=== PATIENT | female | born 1960 | race Caucasian/White ===

== ENCOUNTER 2020-04-20 02:47 | Inpatient (IN) | payer OTHER ==
[2020-04-20 02:52] LABS: Glucose,Whole Blood 120 mg/dL (75-99)
[2020-04-20] MEDS ORDERED: LORazepam 2 MG/ML INJ IV STA (03:17)
[2020-04-20] MEDS ORDERED: SODIUM CHLORIDE 0.9% 500 ML 500 ML IV STA (03:18)
--- NOTE | 2020-04-20 03:28 | ED ---
Altered Mental Status HPI - General Chief Complaint: Altered Mental Status Stated Complaint: mental health Time Seen by Provider: 04/20/20 03:03 Source: EMS Mode of arrival: EMS Limitations: altered mental status - History of Present Illness Initial Comments: This patient is a 59-year-old woman brought by EMS to have evaluation for altered mental status. They were called to the home because the patient was reportedly hallucinating and acting strange fashion. It was reported that the patient had taken Suboxone, which is not her medication. The patient is not able to give any useful history. She does appear to be acutely delirious, hallucinating about bugs in the room. MD Complaint: altered mental status, confusion -: hour(s) Severity: severe Consistency of Symptoms: getting worse - Related Data Allergies Allergy/AdvReac Type Severity Reaction Status Date / Time No Known Allergies Allergy Verified 04/20/20 03:21 Review of Systems ROS Statement: Those systems with pertinent positive or pertinent negative responses have been documented in the HPI. ROS Other: All systems not noted in ROS Statement are negative. Limitations: ROS unobtainable due to patients medical condition (Patient acutely delirious) Past Medical History Past Medical History: Unable to Obtain Past Surgical History: Unable to Obtain Smoking Status: Unknown if ever smoked Past Alcohol Use History: None Reported Past Drug Use History: None Reported General Exam Limitations: altered mental status General appearance: alert, other (Appears delirious) Head exam: Present: atraumatic, normocephalic, normal inspection Eye exam: Present: normal appearance, PERRL, EOMI. Absent: nystagmus ENT exam: Present: normal oropharynx Neck exam: Present: normal inspection, full ROM. Absent: tenderness, meningismus Respiratory exam: Present: normal lung sounds bilaterally. Absent: respiratory distress, wheezes, rales, rhonchi, stridor Cardiovascular Exam: Present: regular rate, normal rhythm, normal heart sounds. Absent: systolic murmur, diastolic murmur, rubs, gallop GI/Abdominal exam: Present: soft. Absent: distended, tenderness, guarding, rebound, rigid Extremities exam: Present: normal inspection, normal capillary refill. Absent: pedal edema, calf tenderness Back exam: Present: normal inspection Neurological exam: Present: alert, CN II-XII intact. Absent: oriented X3 (Patient is only oriented to person at the moment), motor sensory deficit Skin exam: Present: warm, dry, intact, normal color. Absent: rash Course Vital Signs 04/20/20 04/20/20 02:50 06:23 Temperature 97.8 F 98.3 F Pulse Rate 101 H 99 Respiratory 18 16 Rate Blood Pressure 158/135 146/79 O2 Sat by Pulse 96 100 Oximetry Procedures - Restraint - Face to Face Restraint Occurrence 1 Patient's Immediate Situation: Endangers self safety Patient's Reaction to the Intervention: Bizarre, Apprehensive, Resistive to care Patient's Medical & Behavioral Condition: Confused, Agitated, Visual hallucinations, Bizarre behavior Need to Continue or Terminate Restraint or Seclusion: Continue Face to Face Eval of Restraint Date: 04/20/20 Face to Face Eval of Restraint Time: 03:50 Medical Decision Making - Medical Decision Making Patient is a 59-year-old woman brought for acute delirium. After she has been here. Time her exam is clearing. The patient is able to recall that she did take part of the Suboxone film. She states that she had been having some pain to her right leg which let her to take the medication. She now is able to relate that she does see Dr. Estefania Cordova who is out of [place]. She is able to recall medications she is taking. The patient denies any chest discomfort tonight though she states she has had episodes in the past. No dyspnea, diaphoresis, nausea or vomiting. Given that the troponin is above normal, will admit for cardiology consultation. - Lab Data Result diagrams: 04/20/20 04:19 04/20/20 04:19 Lab Results 04/20/20 04/20/20 04/20/20 Range/Units 02:51 04:19 04:19 WBC 15.7 H (3.8-10.6) k/uL RBC 4.88 (3.80-5.40) m/uL Hgb 14.9 (11.4-16.0) gm/dL Hct 46.5 H (34.0-46.0) % MCV 95.3 (80.0-100.0) fL MCH 30.5 (25.0-35.0) pg MCHC 32.0 (31.0-37.0) g/dL RDW 13.0 (11.5-15.5) % Plt Count 307 (150-450) k/uL Neutrophils % 78 % Lymphocytes % 14 % Monocytes % 4 % Eosinophils % 2 % Basophils % 0 % Neutrophils # 12.2 H (1.3-7.7) k/uL Lymphocytes # 2.3 (1.0-4.8) k/uL Monocytes # 0.6 (0-1.0) k/uL Eosinophils # 0.4 (0-0.7) k/uL Basophils # 0.1 (0-0.2) k/uL Sodium 137 (137-145) mmol/L Potassium 4.7 (3.5-5.1) mmol/L Chloride 104 (98-107) mmol/L Carbon Dioxide 27 (22-30) mmol/L Anion Gap 6 mmol/L BUN 15 (7-17) mg/dL Creatinine 0.86 (0.52-1.04) mg/dL Est GFR (CKD-EPI)AfAm 86 (>60 ml/min/1.73 sqM) Est GFR (CKD-EPI)NonAf 75 (>60 ml/min/1.73 sqM) Glucose 154 H (74-99) mg/dL POC Glucose (mg/dL) 120 H (75-99) mg/dL POC Glu Monomer Purification Operator ID Nolan, Donell Calcium 9.4 (8.4-10.2) mg/dL Total Bilirubin 0.6 (0.2-1.3) mg/dL AST 25 (14-36) U/L ALT 13 (4-34) U/L Alkaline Phosphatase 59 (38-126) U/L Troponin I (0.000-0.034) ng/mL Total Protein 6.9 (6.3-8.2) g/dL Albumin 4.2 (3.5-5.0) g/dL TSH 1.990 (0.465-4.680) mIU/L 04/20/20 Range/Units 04:19 WBC (3.8-10.6) k/uL RBC (3.80-5.40) m/uL Hgb (11.4-16.0) gm/dL Hct (34.0-46.0) % MCV (80.0-100.0) fL MCH (25.0-35.0) pg MCHC (31.0-37.0) g/dL RDW (11.5-15.5) % Plt Count (150-450) k/uL Neutrophils % % Lymphocytes % % Monocytes % % Eosinophils % % Basophils % % Neutrophils # (1.3-7.7) k/uL Lymphocytes # (1.0-4.8) k/uL Monocytes # (0-1.0) k/uL Eosinophils # (0-0.7) k/uL Basophils # (0-0.2) k/uL Sodium (137-145) mmol/L Potassium (3.5-5.1) mmol/L Chloride (98-107) mmol/L Carbon Dioxide (22-30) mmol/L Anion Gap mmol/L BUN (7-17) mg/dL Creatinine (0.52-1.04) mg/dL Est GFR (CKD-EPI)AfAm (>60 ml/min/1.73 sqM) Est GFR (CKD-EPI)NonAf (>60 ml/min/1.73 sqM) Glucose (74-99) mg/dL POC Glucose (mg/dL) (75-99) mg/dL POC Glu Monomer Purification Operator ID Calcium (8.4-10.2) mg/dL Total Bilirubin (0.2-1.3) mg/dL AST (14-36) U/L ALT (4-34) U/L Alkaline Phosphatase (38-126) U/L Troponin I 0.144 H* (0.000-0.034) ng/mL Total Protein (6.3-8.2) g/dL Albumin (3.5-5.0) g/dL TSH (0.465-4.680) mIU/L - EKG Data -: EKG Interpreted by Dc EKG shows normal: sinus rhythm, intervals (Normal), QRS complexes (Possible old septal infarct), ST-T waves (Normal) Rate: normal (Rate 100 bpm) Disposition Clinical Impression: Elevated troponin I level, Altered mental status Disposition: ADMITTED IP TO THIS HOSP Condition: Fair Is patient prescribed a controlled substance at d/c from ED?: No
[2020-04-20 04:26] LABS: Basophils # (A) 0.1 k/uL (0-0.2); Basophils % (A) 0 %; Eosinophils # (A) 0.4 k/uL (0-0.7); Eosinophils % (A) 2 %; HCT 46.5 % (34.0-46.0); HGB 14.9 gm/dL (11.4-16.0); Lymphocytes # (A) 2.3 k/uL (1.0-4.8); Lymphocytes % (A) 14 %; MCH 30.5 pg (25.0-35.0); MCV 95.3 fL (80.0-100.0); Mean Platelet Volume 7.6; Monocytes # (A) 0.6 k/uL (0-1.0); Monocytes % (A) 4 %; Neutrophils # (A) 12.2 k/uL (1.3-7.7); Neutrophils % (A) 78 %; Platelet Count 307 k/uL (150-450); RBC 4.88 m/uL (3.80-5.40); WBC 15.7 k/uL (3.8-10.6)
[2020-04-20 04:39] LABS: Albumin 4.2 g/dL (3.5-5.0); Calcium 9.4 mg/dL (8.4-10.2); Potassium 4.7 mmol/L (3.5-5.1); Total Bilirubin 0.6 mg/dL (0.2-1.3); Total Protein 6.9 g/dL (6.3-8.2)
[2020-04-20] MEDS ORDERED: METOPROLOL TARTRATE 25 MG TAB PO STA (05:15)
[2020-04-20] MEDS ORDERED: ASPIRIN 81 MG PO STA (05:16)
--- NOTE | 2020-04-20 05:42 | CT ---
EXAM: CT Head Without Intravenous Contrast CLINICAL HISTORY: altered mental status TECHNIQUE: Axial computed tomography images of the head/brain without intravenous contrast. CTDI is 49.27 mGy and DLP is 1154.4 mGy-cm. This CT exam was performed using one or more of the following dose reduction techniques: automated exposure control, adjustment of the mA and/or kV according to patient size, and/or use of iterative reconstruction technique. COMPARISON: No relevant prior studies available. FINDINGS: Brain: Unremarkable. No hemorrhage. No significant white matter disease. No edema. Ventricles: Unremarkable. No ventriculomegaly. Bones/joints: Unremarkable. No acute fracture. Soft tissues: Unremarkable. Sinuses: Unremarkable as visualized. No acute sinusitis. Mastoid air cells: Unremarkable as visualized. No mastoid effusion. IMPRESSION: No CT evidence of acute intracranial pathology.
[2020-04-20] MEDS ORDERED: NITROGLYCERIN SL TABS 0.4 MG TAB SUBLINGUAL PRN (05:52)
[2020-04-20 07:19] LABS: Amphetamine Screen,Urine Not Detected (NotDetected); Barbiturate Screen,Urine Not Detected (NotDetected); Benzodiazepines Screen,Urine Detected (NotDetected); Cocaine Screen,Urine Not Detected (NotDetected); Methadone Screen, Urine Not Detected (NotDetected); Opiate Screen,Urine Not Detected (NotDetected); Oxycodone Screen, Urine Not Detected (NotDetected); Phencyclidine Screen,Urine Not Detected (NotDetected); Tricyclic Antidepressant,Urine Not Detected (NotDetected); Urn Cannabinoid Scrn Detected (NotDetected)
[2020-04-20] MEDS ORDERED: ALPRAZolam 0.5 MG TAB PO PRN (09:27)
[2020-04-20] MEDS ORDERED: LORazepam 2 MG/ML INJ IV PRN (09:27)
[2020-04-20] MEDS ORDERED: HALOPERIDOL LACTATE 5 MG/ML 1 ML VIAL IVP PRN (09:28)
[2020-04-20] MEDS ORDERED: GABAPENTIN 400 MG CAP PO SCH (10:30)
[2020-04-20] MEDS ORDERED: PROPRANOLOL LA 60 MG CAP.SA.24H PO SCH (10:30)
[2020-04-20] MEDS: diazePAM 5 MG TAB PO PRN ×2 (10:43→21:15)
[2020-04-20] MEDS: ATORVASTATIN 40 MG TAB PO SCH (10:43)
[2020-04-20] MEDS: NICOTINE 14MG/24HR PATCH TRANSDERM SCH (10:43)
[2020-04-20] MEDS: SODIUM CHLORIDE 0.9% 1,000 ML IV SCH ×2 (10:47→16:05)
--- NOTE | 2020-04-20 11:01 | P.HPIM ---
History of Present Illness This is a pleasant 59 years old female with past medical history of hypertension and hyperlipidemia. She was brought yesterday altered mental status. As per first attempt him over the phone and then at bedside that patient first hurt her leg with mild scraping after that she started talking nonsense and noncoherent warts, patient admitted taking Suboxone medicine prior to that which is mild blunting to her on the top of her gabapentin and Ultram. This morning patient was agitated and wanted to leave AMA, I wanted to talk to her she was a little bit distracted although she was alert and awake and oriented to time and place and person, however she The hospital but she thought she is in her [facility] and she didn't know the CT but after reorientation she became more aware to the place. However she noticed to have some flight of thoughts and agitated but within 1 hour she became more calm and more awake and alert. She denies chest pain or dyspnea or coughing. She is a smoker. Labs showing mild leukocytosis with no evidence of infection. Troponin is elevated at 0.14 and 0.49, leukocytosis slightly elevated at 15 K, TSH normal, rest of BMP and liver enzymes were unremarkable. Review of Systems CONSTITUTIONAL: No fever, no malaise, no fatigue. HEENT: No recent visual problems or hearing problems. Denied any sore throat. CARDIOVASCULAR: No orthopnea, PND, no palpitations, no syncope. PULMONARY: No shortness of breath, no cough, no hemoptysis. GASTROINTESTINAL: No diarrhea, no nausea, no vomiting, no abdominal pain. Normoactive bowel sounds. NEUROLOGICAL: No headaches, no weakness, no numbness. HEMATOLOGICAL: Denies any bleeding or petechiae. GENITOURINARY: Denies any burning micturition, frequency, or urgency. MUSCULOSKELETAL/RHEUMATOLOGICAL: Denies any joint pain, swelling, or any muscle pain. ENDOCRINE: Denies any polyuria or polydipsia. Past Medical History Past Medical History: Unable to Obtain Past Surgical History: Unable to Obtain Smoking Status: Unknown if ever smoked Past Alcohol Use History: None Reported Past Drug Use History: None Reported Medications and Allergies Home Medications Medication Instructions Recorded Confirmed Type Diazepam [Valium] 10 mg PO BID PRN 04/20/20 04/20/20 History Gabapentin 1,200 mg PO TID 04/20/20 04/20/20 History Nicotine 14Mg/24Hr Patch [Habitrol 1 patch TRANSDERM DAILY 04/20/20 04/20/20 History 14Mg/24Hr Patch] Pravastatin Sodium [Pravachol] 20 mg PO HS 04/20/20 04/20/20 History Propranolol HCl [Propranolol HCl 60 mg PO DAILY 04/20/20 04/20/20 History ER] buPROPion HCL [Wellbutrin SR] 150 mg PO Q12H 04/20/20 04/20/20 History traMADol HCl [Ultram] 50 mg PO Q6H PRN 04/20/20 04/20/20 History Allergies Allergy/AdvReac Type Severity Reaction Status Date / Time No Known Allergies Allergy Verified 04/20/20 07:35 Physical Exam Vitals: Vital Signs Temp Pulse Pulse Resp BP BP Pulse Ox 04/20/20 08:15 98.2 F 90 16 141/88 96 04/20/20 06:23 98.3 F 99 16 146/79 100 04/20/20 02:50 97.8 F 101 H 18 158/135 96 Intake and Output 04/19/20 04/20/20 04/20/20 22:59 06:59 14:59 Other: Weight 58.967 kg GENERAL: The patient is alert and oriented x3, not in any acute distress. Thin built HEENT: Pupils are round and equally reacting to light. EOMI. No scleral icterus. No conjunctival pallor. Normocephalic, atraumatic. No pharyngeal erythema. No thyromegaly. CARDIOVASCULAR: S1 and S2 present. No murmurs, rubs, or gallops. PULMONARY: Chest is clear to auscultation, no wheezing or crackles. ABDOMEN: Soft, nontender, nondistended, normoactive bowel sounds. No palpable organomegaly. MUSCULOSKELETAL: No joint swelling or deformity. EXTREMITIES: No cyanosis, clubbing, or pedal edema. NEUROLOGICAL: Gross neurological examination did not reveal any focal deficits. SKIN: No rashes. No petechiae -psychiatric: Calm but was agitated with hallucination in the morning Results CBC & Chem 7: 04/20/20 04:19 04/20/20 04:19 Labs: Abnormal Lab Results - Last 24 Hours (Table) 04/20/20 04/20/20 04/20/20 Range/Units 02:51 04:19 04:19 WBC 15.7 H (3.8-10.6) k/uL Hct 46.5 H (34.0-46.0) % Neutrophils # 12.2 H (1.3-7.7) k/uL Glucose 154 H (74-99) mg/dL POC Glucose (mg/dL) 120 H (75-99) mg/dL Troponin I (0.000-0.034) ng/mL U Benzodiazepines Scrn (NotDetected) U Marijuana (THC) Screen (NotDetected) 04/20/20 04/20/20 04/20/20 Range/Units 04:19 06:47 09:44 WBC (3.8-10.6) k/uL Hct (34.0-46.0) % Neutrophils # (1.3-7.7) k/uL Glucose (74-99) mg/dL POC Glucose (mg/dL) (75-99) mg/dL Troponin I 0.144 H* 0.496 H* (0.000-0.034) ng/mL U Benzodiazepines Scrn Detected H (NotDetected) U Marijuana (THC) Screen Detected H (NotDetected) Assessment and Plan Assessment: Alexander and plan: -Elevated troponin, cardiology on the case, continue with aspirin and Lipitor. -Transient period of talking nonsense, we will consult neurology to rule out TIA -Mild leukocytosis, rule out infection. Check urinalysis and chest x-ray -Substance abuse, psychiatry on the top of her agitation and transient hallu cination to rule out baseline psychiatric illness DVT prophylaxis: Subcutaneous heparin GI Prophylaxis: Pepcid
--- NOTE | 2020-04-20 11:40 | ECHOF ---
Referral Reason:elevated troponin MEASUREMENTS -------- HEIGHT: 165.1 cm WEIGHT: 59.0 kg BP: RVIDd: 2.0 cm (< 3.3) IVSd: 0.8 cm (0.6 - 1.1) LVIDd: 4.5 cm (3.9 - 5.3) LVPWd: 0.9 cm (0.6 - 1.1) IVSs: 0.9 cm LVIDs: 3.4 cm LVPWs: 1.5 cm LAESV Index (A-L): 34.23 ml/m Ao Diam: 2.8 cm (2.0 - 3.7) AV Cusp: 1.6 cm (1.5 - 2.6) LA Diam: 2.3 cm (2.7 - 3.8) MV EXCURSION: 15.965 mm (> 18.000) MV EF SLOPE: 162 mm/s (70 - 150) EPSS: 1.9 cm MV E Gael: 1.00 m/s MV DecT: 175 ms MV A Gael: 0.67 m/s MV E/A Ratio: 1.49 RAP: 5.00 mmHg RVSP: 44.33 mmHg FINDINGS -------- This was a technically good study. The left ventricular size is normal. Left ventricular wall thickness is normal. Overall left vent ricular systolic function is mild-moderately impaired with, an EF between 40 - 45 %. Increased LAP Grade 2 Diastolic Dysfunction. Basal lateral LV wall motion is normal. Basal inferoseptal LV wall motion is hypokinetic. Basal anteroseptal LV wall motion is hypokinetic. Basal inferolateral h ypokinesis. The right ventricle is normal in size. LA is moderately dilated 34-39 ml/m2 The right atrial size is normal. The aortic valve is trileaflet and appears structurally normal. The mitral valve is normal. The mitral valve leaflets are mildly thickened , with a MVA of {MVA (PH T)} (by PHT) Moderate to severe mitral regurgitation predominantly central. Would recommend GEOVANI to further assess etiology and degree of regurgitation if clinically indicated. The tricuspid valve appears structurally normal. Moderate to severe tricuspid regurgitation present . There is mild pulmonary hypertension. The right ventricular systolic pressure, as measured by D zoranpler, is 44.33mmHg. There is no pulmonic regurgitation present. The aortic root size is normal. Normal inferior vena cava with normal inspiratory collapse consistent with estimated right atrial pre ssure of 5 mmHg. Echo free space indicative of a pericardial fat pad. There is no pericardial effusion. CONCLUSIONS -------- 1. The left ventricular size is normal. 2. Left ventricular wall thickness is normal. 3. Overall left ventricular systolic function is mild-moderately impaired with, an EF between 40 - 45 %. 4. Increased LAP Grade 2 Diastolic Dysfunction. 5. Basal lateral LV wall motion is normal. 6. Basal inferoseptal LV wall motion is hypokinetic. 7. Basal anteroseptal LV wall motion is hypokinetic. 8. Basal inferolateral hypokinesis. 9. LA is moderately dilated 34-39 ml/m2 10. The mitral valve leaflets are mildly thickened. 11. Moderate to severe mitral regurgitation predominantly central. Would recommend GEOVANI to further as sess etiology and degree of regurgitation if clinically indicated. 12. Moderate to severe tricuspid regurgitation present. 13. There is mild pulmonary hypertension. 14. The right ventricular systolic pressure, as measured by Doppler, is 44.33mmHg. 15. Echo free space indicative of a pericardial fat pad. 16. There is no pericardial effusion. BEREAVEMENT COORDINATOR: Regina Villagomez RDCS
[2020-04-20] MEDS ORDERED: HEPARIN SODIUM,PORCINE 5,000 UNIT/ML 1 ML VIAL IV ONE (13:14)
[2020-04-20] MEDS ORDERED: HEPARIN SODIUM,PORCINE 5,000 UNIT/ML 1 ML VIAL IV PRN (13:14)
[2020-04-20 13:17] LABS: Amorphous Sediment,Urine Rare /hpf; Appearance,Urine Cloudy (Clear); Bilirubin,Urine Negative (Negative); Blood,Urine Negative (Negative); Color,Urine Yellow; Glucose,Urine (UA) Negative (Negative); Ketones,Urine Negative (Negative); Leukocyte Esterase,Urine Negative (Negative); Mucus,Urine Rare /hpf; Nitrite,Urine Negative (Negative); PH, Urine 7.5 (5.0-8.0); Protein,Urine Negative (Negative); RBC,Urine 1 /hpf (0-5); Specific Gravity,Urine 1.011 (1.001-1.035); Squamous Epithelial Cell,Urine <1 /hpf (0-4); Urobilinogen,Urine <2.0 mg/dL (<2.0); WBC,Urine 2 /hpf (0-5)
[2020-04-20] MEDS ORDERED: SODIUM CHLORIDE 0.9% 1,000 ML in EMPTY BAG 1 BAG IV ONE (13:22)
[2020-04-20] MEDS ORDERED: HEPARIN SOD,PORK IN 0.45% NACL 25,000 UNIT in 0.45% NACL 1 250ML.BAG IV SCH (13:30)
--- NOTE | 2020-04-20 13:33 | P.CRDCN ---
History of Present Illness History of present illness: HISTORY OF PRESENTING ILLNESS This is a pleasant 59-year-old female past medical history significant for anxiety, depression, dyslipidemia, chronic nicotine dependence and PTSD. S he denies prior history of coronary artery disease and does not follow with a freight rate specialist for any reason. We have been asked to see in consultation for elevated troponin. She is somewhat agitated this morning with altered mental status. She is pacing the room and wanting to leave. She doesn't remember why she was brought to the hospital. She was apparently in restraints in the emergency department due to severe agitation. ER reports indicate she was brought in by EMS after the police were called to her house for complaints of she was hallucinating and acting aggressively. She denies ever having had any symptoms of chest discomfort but does state that she feels short of breath at times. She admits to smoking but has been cutting down recently. Echocardiogram obtained reveals impaired LV systolic function with ejection fraction 40-45%, grade 2 diastolic dysfunction, basal lateral, basal inferior septal, basal anterior septal and basal inferior lateral wall hypokinesia, moderate to severe MR, moderate to severe TR and mild pulmonary hypertension with an RVSP of 44 mmHg. DIAGNOSTICS EKG reveals sinus mechanism with nonspecific abnormalities. CT of the brain is negative for an acute intracranial abnormality. Laboratory reviewed, WBC 15.7, hemoglobin 14.9, platelets 307, sodium 137, potassium 4.7, creatinine 0.86, troponin 0.144 and 0.496, TSH 1.99. Current cardiac medications include pravastatin 20 mg at bedtime and propanolol 60 mg daily. REVIEW OF SYSTEMS At the time of my exam: CONSTITUTIONAL: Denies fever or chills. CARDIOVASCULAR: Denies chest pain, shortness of breath, orthopnea, PND or palpitations. RESPIRATORY: Denies cough. GASTROINTESTINAL: Denies abdominal pain, diarrhea, constipation, nausea or vomiting. MUSCULOSKELETAL: Denies myalgias. NEUROLOGIC: Denies numbness, tingling or weakness. ENDOCRINE: Denies fatigue, weight change, polydipsia or polyurina. GENITOURINARY: Denies burning, hematuria or urgency with micturation. HEMATOLOGIC: Denies history of anemia or bleeding. PHYSICAL EXAMINATION Blood pressure 123/60 heart rate 74 afebrile and maintaining oxygen saturation on room air. CONSTITUTIONAL: No apparent distress. Appeara older than stated age. HEENT: Head is normocephalic. Pupils are equal, round. Sclerae anicteric. Mucous membranes of the mouth are moist. No JVD. No carotid bruit. CHEST EXAMINATION: Lungs are clear to auscultation. No chest wall tenderness is noted on palpation or with deep breathing. Diminished bilaterally. HEART EXAMINATION: Regular rate and rhythm. S1, S2 heard. Holosystolic murmur at the apex, no gallops or rub. ABDOMEN: Soft, nontender. Positive bowel sounds. EXTREMITIES: 2+ peripheral pulses, no lower extremity edema and no calf tenderness. NEUROLOGIC EXAMINATION: Patient is awake, alert to self, confused about the situation. ASSESSMENT Acute altered mental status with disorientation Shortness of breath Non-ST elevated myocardial infarction Cardiomyopathy, likely ischemic given the segmental wall motion abnormalities Acute systolic heart failure, clinically euvolemic Dyslipidemia Chronic nicotine dependence PLAN Initiate patient on heparin infusion. Plan for cardiac catheterization tomorrow morning. I have discussed the risks, benefits and alternative therapies for the above-mentioned procedure and for both sedation/analgesia as well as necessary blood product administration, if indicated, as they pertain to this patient. The patient has indicated understanding and acceptance of the risks and procedures discussed. The procedure was discussed in great detail with the patient and her . The patient and her both agree to move forward with the above stated pro cedure. Change propanolol to metoprolol 25 mg twice a day, initiate aspirin 81 mg daily and atorvastatin 40 mg daily. Further recommendations to follow based on clinical course. Thank you kindly for this consultation. Nurse Practitioner note has been reviewed, I agree with a documented findings a nd plan of care. Patient was seen and examined. Past Medical History Past Medical History: Unable to Obtain History of Any Multi-Drug Resistant Organisms: None Reported Past Surgical History: Unable to Obtain Additional Past Surgical History / Comment(s): bilateral lumpectomy Past Anesthesia/Blood Transfusion Reactions: No Reported Reaction Smoking Status: Unknown if ever smoked Past Alcohol Use History: None Reported Past Drug Use History: None Reported Medications and Allergies Home Medications Medication Instructions Recorded Confirmed Type Diazepam [Valium] 10 mg PO BID PRN 04/20/20 04/20/20 History Gabapentin 1,200 mg PO TID 04/20/20 04/20/20 History Nicotine 14Mg/24Hr Patch [Habitrol 1 patch TRANSDERM DAILY 04/20/20 04/20/20 History 14Mg/24Hr Patch] Pravastatin Sodium [Pravachol] 20 mg PO HS 04/20/20 04/20/20 History Propranolol HCl [Propranolol HCl 60 mg PO DAILY 04/20/20 04/20/20 History ER] buPROPion HCL [Wellbutrin SR] 150 mg PO Q12H 04/20/20 04/20/20 History traMADol HCl [Ultram] 50 mg PO Q6H PRN 04/20/20 04/20/20 History Allergies Allergy/AdvReac Type Severity Reaction Status Date / Time No Known Allergies Allergy Verified 04/20/20 07:35 Physical Exam Vitals: Vital Signs Temp Pulse Pulse Resp BP BP Pulse Ox 04/20/20 12:20 74 16 123/67 94 L 04/20/20 08:15 98.2 F 90 16 141/88 96 04/20/20 06:23 98.3 F 99 16 146/79 100 04/20/20 02:50 97.8 F 101 H 18 158/135 96 Intake and Output 04/19/20 04/20/20 04/20/20 22:59 06:59 14:59 Intake Total 25 Output Total 100 Balance -75 Intake: Oral 25 Output: Urine 100 Other: Weight 58.967 kg 58.967 kg Results 04/20/20 04:19 04/20/20 04:19 Cardiac Enzymes 04/20/20 04/20/20 04/20/20 Range/Units 04:19 04:19 09:44 AST 25 (14-36) U/L Troponin I 0.144 H* 0.496 H* (0.000-0.034) ng/mL CBC 04/20/20 Range/Units 04:19 WBC 15.7 H (3.8-10.6) k/uL RBC 4.88 (3.80-5.40) m/uL Hgb 14.9 (11.4-16.0) gm/dL Hct 46.5 H (34.0-46.0) % Plt Count 307 (150-450) k/uL Comprehensive Metabolic Panel 04/20/20 Range/Units 04:19 Sodium 137 (137-145) mmol/L Potassium 4.7 (3.5-5.1) mmol/L Chloride 104 (98-107) mmol/L Carbon Dioxide 27 (22-30) mmol/L BUN 15 (7-17) mg/dL Creatinine 0.86 (0.52-1.04) mg/dL Glucose 154 H (74-99) mg/dL Calcium 9.4 (8.4-10.2) mg/dL AST 25 (14-36) U/L ALT 13 (4-34) U/L Alkaline Phosphatase 59 (38-126) U/L Total Protein 6.9 (6.3-8.2) g/dL Albumin 4.2 (3.5-5.0) g/dL Current Medications Generic Name Dose Route Start Last Admin Trade Name Freq PRN Reason Stop Dose Admin Aspirin 81 mg 04/21/20 09:00 Aspirin 81 Mg PO DAILY OPHELIA Atorvastatin Calcium 40 mg 04/20/20 09:30 04/20/20 10:43 Atorvastatin 40 Mg Tab PO 40 mg DAILY OPHELIA Administration Diazepam 10 mg 04/20/20 10:25 04/20/20 10:43 Diazepam 5 Mg Tab PO 10 mg BID PRN Administration Anxiety Famotidine 20 mg 04/20/20 21:00 Famotidine 20 Mg/2 Ml Vial IV Q12HR OPHELIA Gabapentin 800 mg 04/20/20 16:00 Gabapentin 400 Mg Cap PO TID OPHELIA Haloperidol Lactate 1 mg 04/20/20 09:28 Haloperidol Lactate 5 Mg/Ml 1 Ml Vial IVP Q6H PRN Agitation or Acute Psychosis Heparin Sodium (Porcine) 5,000 unit 04/20/20 21:00 Heparin Sodium,Porcine 5,000 Unit/Ml 1 Ml Vial SQ Q12HR OPHELIA Sodium Chloride 1,000 mls @ 100 mls/hr 04/20/20 06:00 04/20/20 10:47 Saline 0.9% IV 100 mls/hr .Q10H OPHELIA Administration Nicotine 1 patch 04/20/20 10:30 04/20/20 10:43 Nicotine 14mg/24hr Patch TRANSDERM 1 patch DAILY OPHELIA Administration Nitroglycerin 0.4 mg 04/20/20 05:52 Nitroglycerin Sl Tabs 0.4 Mg Tab SUBLINGUAL Q5M PRN Chest Pain Propranolol HCl 60 mg 04/20/20 10:30 04/20/20 12:23 Propranolol La 60 Mg Cap.Sa.24h PO 60 mg DAILY OPHELIA Administration Intake and Output 04/19/20 04/20/20 04/20/20 22:59 06:59 14:59 Intake Total 25 Output Total 100 Balance -75 Intake: Oral 25 Output: Urine 100 Other: Weight 58.967 kg 58.967 kg Patient Weight 04/21/20 06:59 Weight 58.967 kg 04/20/20 04:19 04/20/20 04:19
--- NOTE | 2020-04-20 13:36 | P.CNNES ---
History of Present Illness Consult date: 04/20/20 Requesting physician: Yazan Miranda Reason for Consult: Acute delirium History of Present Illness: Patient is a 59-year-old left-handed female came to the hospital [facility] today at 2:47 AM for altered mental status. Patient was hallucinating, acting strange. It was reported patient has taken Suboxone which is not her medication. Patient not able to provide any history in the ER. She was noted to be acutely delirious, hallucinating, seeing bugs in the room. Today when I came to the see the patient, her was also present. They state that yesterday morning patient was feeling fine, went to the park. She did 1 time staggered and tumbled down the hill but did not suffer from any head injury. It was a slow tumble. They came home at 6 PM, had dinner, watching TV, and was feeling very relaxed. At around 2 AM, patient was walking in the house and was in the bathroom when she called on him, and when he came, patient was about to fall but her grabbed her and she did not fall. He mentioned that she was incoherent, not making sense, some slurring. He did not notice any facial droop or any problem with the vision. Her legs were shaking, both of them, but patient states it was only the right leg. They called their grandson, who called EMS. Patient at that time could not stand. According to EMS flow sheet when they arrived, patient was being held upright by her . Patient legs were kicking out, like restless leg syndrome. Patient was mentioned that her legs felt tingly. Patient was unable to walk due to ataxic gait. Patient was alert and oriented 4. Claims she had very dry mouth. Patient making comments like "I see what you did to your partner". In the ambulance patient was seeing insects on the padding and birds flying around. Her blood glucose was 133 mg/dL. Temperature 100.1 blood pressure was 185/164, pulse 100 and repeat blood pressure was 182/107. Vital signs on arrival blood pressure 158/135 which improved to 146/79. Pulse rate 101, temperature 97.8. Blood test shows normal hemoglobin, WBC 15.7 with elevated neutrophils. Chem-7 normal. Hepatic panel normal troponin 0.144 urine drug screen positive for benzodiazepine and marijuana. TSH is normal. CT head is normal. EKG shows normal sinus rhythm by atrial enlargement. Septal infarct, age undetermined. Patient's also mentioned that she fell night before the last after she tripped on a box that was laying by end of the bed. Couple months ago she fell backwards. She got up to go to the bathroom and then fell backwards. Patient has history of smoking Maeve tobacco half pack per day for 40 years, quit one week ago. She used to drink in her 20s but not anymore for long time. Patient states that her knees did give her small portion of Suboxone but she has taken it before and never had such reaction. Patient denies diabetes. Patient states that she has been taking Valium 10 mg twice a day for number of years. Lately sometimes when she is more anxious and panic, she would take more than 2 tablets. Therefore she ran out of her Valium couple days before this incident. Patient also mentions that she was stung by a brown recluse couple months ago for which she received 2 courses of antibiotics. Patient also mentions that she tried marijuana about a week ago, does not take it on a regular basis. Review of Systems As above. Denies any headache problem with the vision facial droop. Denies any chest pain abdominal pain nausea vomiting diarrhea. Complains of some bruises and scratches from falls. Past Medical History Past Medical History: Unable to Obtain Past Surgical History: Unable to Obtain Smoking Status: Unknown if ever smoked Past Alcohol Use History: None Reported Past Drug Use History: None Reported Medications and Allergies Home Medications Medication Instructions Recorded Confirmed Type Diazepam [Valium] 10 mg PO BID PRN 04/20/20 04/20/20 History Gabapentin 1,200 mg PO TID 04/20/20 04/20/20 History Nicotine 14Mg/24Hr Patch [Habitrol 1 patch TRANSDERM DAILY 04/20/20 04/20/20 History 14Mg/24Hr Patch] Pravastatin Sodium [Pravachol] 20 mg PO HS 04/20/20 04/20/20 History Propranolol HCl [Propranolol HCl 60 mg PO DAILY 04/20/20 04/20/20 History ER] buPROPion HCL [Wellbutrin SR] 150 mg PO Q12H 04/20/20 04/20/20 History traMADol HCl [Ultram] 50 mg PO Q6H PRN 04/20/20 04/20/20 History Allergies Allergy/AdvReac Type Severity Reaction Status Date / Time No Known Allergies Allergy Verified 04/20/20 07:35 Physical Examination - Vital Signs Vital Signs: Vital Signs Temp Pulse Pulse Resp BP BP Pulse Ox 04/20/20 08:15 98.2 F 90 16 141/88 96 04/20/20 06:23 98.3 F 99 16 146/79 100 04/20/20 02:50 97.8 F 101 H 18 158/135 96 Intake and Output 04/19/20 04/20/20 04/20/20 22:59 06:59 14:59 Other: Weight 58.967 kg On examination patient is a middle aged female, in no acute distress. Patient is alert and awake oriented to time place and person. Speech and language functions are normal. Attention and concentration fund of knowledge is adequate. On cranial nerve examination pupils are round and reacting to light, visual colby are full on confrontation, extraocular muscles are intact with no nystagmus. Face is symmetric, tongue protrudes the midline. Palatal elevation and sensation normal. Hearing and shoulder shrug normal. Facial sensations normal. On muscle strength testing there is no pronator drift and the strength is normal in arms and legs distally and proximally. Reflexes are 1+ and plantars are downgoing. Sensory touch is equal. No ataxia for [id number] although she is slightly tremulous. Tone and bulk of muscles normal. Gait deferred. On general examination there is no obvious bruit, S1 and S2 audible, abdomen soft nontender, chest is clear. No peripheral edema, peripheral pulses present. Results - Laboratory Findings CBC and BMP: 04/20/20 04:19 04/20/20 04:19 Abnormal Lab Findings: Abnormal Labs 04/20/20 04/20/20 04/20/20 02:51 04:19 04:19 WBC 15.7 H Hct 46.5 H Neutrophils # 12.2 H Glucose 154 H POC Glucose (mg/dL) 120 H Troponin I U Benzodiazepines Scrn U Marijuana (THC) Screen 04/20/20 04/20/20 04:19 06:47 WBC Hct Neutrophils # Glucose POC Glucose (mg/dL) Troponin I 0.144 H* U Benzodiazepines Scrn Detected H U Marijuana (THC) Screen Detected H Assessment and Plan Assessment: * Episode of an altered mental status with, slurring, hallucinations, and some shaking spells. Possible delirium versus TIA. Rule out hypertensive encephalopathy, as her blood pressure was very high at the scene and when she arrived to the hospital. Patient has been on Valium 10 mg twice a day for number of years, as she ran out of it a couple days ago. Benzodiazepine withdrawal could be contributing to this withdrawal type symptoms/spell. . * Tobacco use * Hypertension * Elevated troponin. Plan: * Patient strongly recommended to avoid abrupt withdrawal of Valium, as it can lead to withdrawal seizure or other withdrawal symptoms. * Control of hypertension as per IM. Cardiology also on board for elevated cardiac enzymes. * Agree with starting aspirin regimen. * 2-D echo has been done, which revealed overall left ventricle systolic function is mild to moderately impaired with EF 40-45%. Basal inferior septal, basal anterior septal left-ventricular wall motion is hypokinetic. Basal inferior lateral hypokinesis. Left atrium is moderately dilated. Moderate to severe MR predominantly central. Would recommend GEOVANI to further assess etiology and degree of regurgitation if clinically indicated. Moderate to severe tricuspid regurgitation. Mild pulmonary hypertension. Cardiology on board. * Carotid Doppler to rule out stenosis. * Check fasting a.m. lipid panel and hemoglobin A1c. For gait imbalance we will check B12, folate. TSH is normal. * Consider PT and OT evaluate gait. * We will follow.
--- NOTE | 2020-04-20 14:07 | P.CN ---
Psychiatric Consult - . Consult date: 04/20/20 Consult:: 04/20/20 13:53 IDENTIFYING DATA: This patient is a 59-year-old female currently lives with her in a house as 2 grandchildren live with her [facility] [employer]. REASON FOR REFERRAL: Psychiatry was consulted for hallucinations which were transient and agitation. HISTORY OF PRESENT ILLNESS: The patient presented to the hospital via EMS for altered mental status. Patient apparently was hallucinating at home and acting strange according to ER report. Patient also had apparently taken a part of a Suboxone film which was not prescribed to her that day. Patient apparently also was complaining of bugs in the room. Patient WBCs were 15.7 and troponins were elevated on admission. Patient was admitted to the medical floors. Patient apparently became agitated earlier today demanding to leave and wanting to sign AMA. Patient was agreeable to be interviewed by development writer at the bedside. Patient claims that she "had a seizure and gas" and states that her grandson had witnessed it at home and states that "I was flopping around like a fish". She states that her leg began having convulsions and that she could not control her. She denies losing consciousness. She states that she has never had a seizure before. She claims that she took 1 corner of a film of Suboxone as she was told it was good for "my back pain". She claims that she was irritated with the staff earlier and believes that she was mistreated and that the "firemen were laughing at me". She claims that she has been dealing with depression for many years and was taking Wellbutrin for it. She states that she'll be open to take a different medication at this time. She denies any depression at this time and was calm and appropriate with development writer and denies any irritability. She denies any anxiety at this time. She claims that her sleep is fair.. At this time patient denies any suicidal or homical ideations, intent or plan. Patient denies any auditory, visual hallucinations. Patients admits to using marijuana occasionally. She denies any alcohol or any cigarette use or any other recreational drug use. PAST PSYCHIATRIC HISTORY: Patient has a a history of anxiety and depression. She states that she is on Wellbutrin and also Valium. He claims that she was once admitted to the mental health unit in [place] under a [place] act related to her depression and alcohol use at that time and states that it was over 30 years ago. Patient denies any psychiatric outpatient follow-up. Patient denies any history of suicide attempts in the past. PAST MEDICAL HISTORY: Hypertension and hyperlipidemia.. ALLERGIES: as per EMR. CHEMICAL DEPENDENCY HISTORY: as per HPI. FAMILY PSYCHIATRIC/SUBSTANCE USE HISTORY: Brother committed suicide. Mother had some form of mental illness. SOCIAL HISTORY: Patient was born and raised in [facility]. She states that she completed up to 10th grade of school and then dropped out to be with her . 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 She claims that she currently lives with her and 2 grandchildren. She states that her daughter . She collects Social Security. She states that she had a DUI and went to custodial in 1990.. MENTAL STATUS EXAM: General Appearance: Patient appears to be thin, stated age is alert, directable, and cooperative. Patient appears to have fair hygiene and grooming wearing hospital gown with fair eye contact. Behavior: Patient is calmly lying in bed without any agitated behavior. Speech: Patient's speech is fluent and nonpressured. Mood/Affect: Patient reports their mood is "better now", affect is congruent Suicidality/Homicidality: Patient denies having any suicidal or homicidal ideation intent or plan. Perceptions: Patient denies any visual hallucinations and denies any auditory hallucinations Though content/process: There is no evidence of any delusional thought content and thought process is linear and goal-directed. [place]. Memory and concentration: AOX3, grossly intact for the purposes of this session. Can spell "WORLD" backwards Judgment and insight: Limited IMPRESSIONS: Depressive disorder unspecified Anxiety disorder unspecified Cannabis use disorder, mild PLAN: -At this time patient DOES NOT meet criteria for inpatient psychiatric admission. -Would recommend the following medication changes/additions: Can continue with Valium 10 mg twice a day when necessary for anxiety. Will start Prozac 20 mg daily for mood/anxiety. -Can discontinue 1:1 sitter at this time as patient is not currently an imminent threat to themselves -pick up worker to provide patient with outpatient mental health/psychiatry resources for appropriate follow up upon discharge -Management Consulting spoke with patient about substance abuse and the harmful effects on medical and mental health, patient verbally understood and agreed. -Communicated plan to patient's nurse -Will continue to follow along if needed. -Please contact with any questions. 04/20/20 13:56
--- NOTE | 2020-04-20 14:08 | US ---
EXAMINATION TYPE: US carotid duplex BILAT DATE OF EXAM: 04/20/2020 COMPARISON: NONE CLINICAL HISTORY: TIA. TIA EXAM MEASUREMENTS: RIGHT: Peak Systolic Velocity (PSV) cm/sec ----- Right CCA: 60.1 ----- Right ICA: 122.6 ----- Right ECA: 61.9 ICA/CCA ratio: 2.0 RIGHT: End Diastole cm/sec ----- Right CCA: 18.2 ----- Right ICA: 46.7 ----- Right ECA: 10.4 LEFT: Peak Systolic Velocity (PSV) cm/sec ----- Left CCA: 57.5 ----- Left ICA: 69.1 ----- Left ECA: 65.8 ICA/CCA ratio: 1.2 LEFT: End Diastole cm/sec ----- Left CCA: 16.5 ----- Left ICA: 26.3 ----- Left ECA: 13.1 VERTEBRALS (direction of flow): Right Vertebral: Antegrade Left Vertebral: Antegrade Rhythm: Normal Grayscale images show no significant focal plaque at carotid bulb level bilaterally. Velocity measure ments and ratios remain within normal limits in the visualized portion of both internal carotid arter ies. IMPRESSION: No hemodynamically significant stenosis seen in either internal carotid artery. Criteria for Assigning % of Stenosis / Diameter reduction (Estimation based on the indirect measurements of the internal carotid artery velocities (ICA PSV). 1. Normal (no stenosis)=ICA PSV < 125 cm/s: ratio < 2.0: ICA EDV<40 cm/s. 2. Less than 50% stenosis=ICA PSV < 125 cm/s: ratio < 2.0: ICA EDV<40 cm/s. 3. 50 to 69% stenosis=ICA PSV of 125 to 230 cm/s: ration 2.0 ? 4.0: ICA EDV 40-100 cm/s. 4. Greater than 70% stenosis to near occlusion= ICA PSV > 230 cm/s: ratio > 4.0: ICA EDV > 100 cm/s. 5. Near occlusion= ICA PSV velocities may be low or undetectable: variable ratio and ICA EDV. 6. Total occlusion=unable to detect flow.
--- NOTE | 2020-04-20 14:40 | XR ---
EXAMINATION TYPE: XR chest 2V DATE OF EXAM: 04/20/2020 COMPARISON: NONE HISTORY: Leukocytosis. TECHNIQUE: Frontal and lateral views of the chest are obtained. FINDINGS: Reticular interstitial prominence bilaterally. There is no suspicious focal air space opaci ty, pleural effusion, or pneumothorax seen. The cardiac silhouette size is within normal limits. Und erlying dextroconvex scoliotic curvature mid thoracic spine. IMPRESSION: Chronic parenchymal changes suspected without acute pulmonary process.
[2020-04-20] MEDS: GABAPENTIN 400 MG CAP PO SCH ×2 (16:04→21:15)
[2020-04-20] MEDS: FLUoxetine HCL 20 MG CAP PO SCH (16:04)
[2020-04-20 16:26] LABS: D-Dimer 1.45 mg/L FEU (<0.60); Prothrombin Time 10.7 sec (9.0-12.0)
[2020-04-20 16:28] LABS: Partial Thromboplastin Time >200.0 sec (22.0-30.0)
--- NOTE | 2020-04-20 19:05 | CT ---
EXAMINATION TYPE: CT angio chest with contrast and with 3-D reconstruction renderings DATE OF EXAM: 04/20/2020 6:07 PM COMPARISON: None HISTORY: Elevated d-dimer. TECHNIQUE: Departmental protocol. Automated exposure control for dose reduction was used. DLP 230.6 m Gycm CONTRAST: CTA scan of the thorax is performed with IV Contrast, patient injected with 100 mL of Isovu e 370, pulmonary embolism protocol. Three-D renderings. FINDINGS: AIRWAYS, LUNGS, PLEURAL SPACES: The lungs are grossly clear, there is no concerning parenchymal mass or nodule identified. There is no pleural effusion or pneumothorax seen. The tracheobronchial tree is patent. MEDIASTINUM: There is satisfactory enhancement of the pulmonary artery and its branches; there is no CT evidence for pulmonary embolism. No acute aortic findings. No cardiomegaly or pericardial effusion . No adenopathy. OTHER: No additional significant abnormality is seen. IMPRESSION: NO ACUTE PROCESS.
[2020-04-20 20:06] LABS: Folate, Serum 14.4 ng/mL
[2020-04-20] MEDS ORDERED: HEPARIN SODIUM,PORCINE 5,000 UNIT/ML 1 ML VIAL SQ SCH (21:00)
[2020-04-20] MEDS: MELATONIN 5 MG TABLET PO SCH (21:15)
[2020-04-20] MEDS: FAMOTIDINE 20 MG/2 ML VIAL IV SCH (21:16)
[2020-04-20] MEDS: METOPROLOL TARTRATE 25 MG TAB PO SCH (21:16)
[2020-04-21 00:02] LABS: Hemoglobin A1C 5.4 % (4.0-6.0)
[2020-04-21] MEDS: ASPIRIN 81 MG PO SCH ×2 (04:44→09:11)
[2020-04-21] MEDS: ATORVASTATIN 40 MG TAB PO SCH (04:48)
[2020-04-21] MEDS: METOPROLOL TARTRATE 25 MG TAB PO SCH ×2 (04:48→21:42)
[2020-04-21] MEDS: SODIUM CHLORIDE 0.9% 1,000 ML IV SCH ×2 (05:09→09:13)
[2020-04-21] MEDS ORDERED: ASPIRIN 325 MG TAB PO ONE (06:00)
[2020-04-21] MEDS ORDERED: MIDAZOLAM 2 MG/2 ML VIAL IVP ONE (08:00)
[2020-04-21] MEDS ORDERED: LIDOCAINE 1% INJ 10MG/ML (20 ML MDV) SQ ONE (08:00)
[2020-04-21] MEDS ORDERED: IV FLUID CONTINUATION 1,000 ML IV ONE (08:02)
[2020-04-21] MEDS: VERAPAMIL SYRINGE (5 MG/10 ML) INTRAARTER ONE ×2 (08:03→08:37)
[2020-04-21] MEDS ORDERED: HEPARIN SODIUM 1,000 UN/ML (10ML VL) IV ONE (08:18)
[2020-04-21] MEDS ORDERED: NITROGLYCERIN 1000MCG/10ML SYRINGE INTRACORON ONE (08:24)
[2020-04-21] MEDS ORDERED: IOPAMIDOL-370 50ML BTL INJ ONE (08:32)
[2020-04-21] MEDS ORDERED: IOPAMIDOL-370 100ML BTL INJ ONE (08:36)
[2020-04-21] MEDS ORDERED: ASPIRIN 325 MG TAB PO SCH (09:00)
[2020-04-21] MEDS: GABAPENTIN 400 MG CAP PO SCH ×3 (09:10→21:41)
[2020-04-21] MEDS: FAMOTIDINE 20 MG/2 ML VIAL IV SCH (09:11)
[2020-04-21] MEDS: FLUoxetine HCL 20 MG CAP PO SCH (09:12)
[2020-04-21] MEDS: NICOTINE 14MG/24HR PATCH TRANSDERM SCH ×2 (09:13→09:20)
[2020-04-21 11:01] LABS: Basophils # (A) 0.1 k/uL (0-0.2); Basophils % (A) 1 %; Eosinophils # (A) 0.1 k/uL (0-0.7); Eosinophils % (A) 1 %; HCT 44.4 % (34.0-46.0); HGB 14.1 gm/dL (11.4-16.0); Lymphocytes # (A) 2.6 k/uL (1.0-4.8); Lymphocytes % (A) 31 %; MCH 31.2 pg (25.0-35.0); MCHC 31.9 g/dL (31.0-37.0); MCV 97.9 fL (80.0-100.0); Mean Platelet Volume 7.7; Monocytes # (A) 0.4 k/uL (0-1.0); Monocytes % (A) 5 %; Neutrophils % (A) 60 %; Platelet Count 228 k/uL (150-450); RBC 4.53 m/uL (3.80-5.40); RDW 12.9 % (11.5-15.5); WBC 8.3 k/uL (3.8-10.6)
--- NOTE | 2020-04-21 12:12 | CC ---
CARDIAC CATHETERIZATION REPORT PROCEDURE: 1. Left heart catheterization and coronary angiography and left ventriculography. 2. Fractional flow reserve assessment/IFR off mid LAD lesion. PERFORMED BY: Dr. Lisa Chaudhari. Moderate conscious sedation time was 39 minutes. Patient was administered Versed. Oxygen saturation, hemodynamics and EKG were monitored closely. CLINICAL INFORMATION: This is a 59-year-old lady with a history of hypertension, hyperlipidemia, smoking, who just quit smoking few days ago, came into the hospital with several nondescript symptoms. Her main issue was that she is under a lot of stress and apparently has been taking some benzodiazepines. She had altered mental status, had abnormal EKG, was hallucinating and then went on to have a troponin elevation with EKG changes and a non- ST elevation ID. Echo revealed basal hypokinesia of the left ventricle of all chambers with atypical takotsubo-type picture. She was advised coronary angiography after due discussion with the patient and regarding coronary angiography and intervention based on findings. They understood all details and wished to proceed. PROCEDURE NOTE: Under local anesthesia and strict aseptic precautions, a 6-Hungarian introducer was placed in the right radial artery. Using a JL3.5 and JR4 catheters, I performed coronary angiography and a pigtail catheter was used to check LV pressures and LV-gram was performed in 30-degree GONZALES projection. Following the procedure. Because of a borderline 50% to 55% mid LAD lesion, I performed an IFR assessment with using a 3.5 left Stephany type guide catheter and Verrata wire. IFR was normal with a value of 0.97 and 0.98. After normalization. Therefore, no further intervention was performed. The patient received 2500 units of heparin and ACT was about 244. Sheath was taken out and TR band applied as per protocol with saturation of the fingers of the right hand of 100%. The patient tolerated the procedure well without complications. The findings and details were discussed with the patient in person and both her by phone. I expect she will be discharged tomorrow. Risk factor modification issues were discussed at length including smoking cessation and not to do an abuse of the benzodiazepines. CARDIAC CATHETERIZATION FINDINGS: Left ventricular end-diastolic pressure was 12-13 mmHg without any gradient across the aortic valve. LEFT VENTRICULOGRAM: This was performed in 30-degree GONZALES projection. The study reveals a left ventricle which is of normal size with hypokinesia of the anterobasal and inferobasal segment with good contractility of the mid and distal portions of the LV with ejection fraction in the 45% to 50% range. There is also evidence of mild to moderate mitral regurgitation noted. There is also evidence of moderate regurgitation noted. CORONARY ANGIOGRAPHY FINDINGS: RIGHT CORONARY ARTERY: This is a technically dominant vessel. No significant disease distally bifurcates into PDA and PLV, both of which supply a sizable amount of myocardium. Minor irregularities noted. No significant disease. LEFT MAIN CORONARY ARTERY: Short patent disease-free vessel that immediately bifurcates into LAD and circumflex. LEFT ANTERIOR DESCENDING CORONARY ARTERY: Good caliber vessel. extends along the anterior wall, gives off septal and diagonal branches. In the midportion after the origin of septal and diagonal branch there is a focal tubular lesion of about 50% -55%. Then the caliber improves, vessel runs all the way to the apex supplying a sizable amount of myocardium. It gives off additional diagonal and septal branch just in the mid and distal portion. There is therefore a 50% to 55% mid LAD lesion. LEFT POSTERIOR CIRCUMFLEX CORONARY ARTERY: A nondominant vessel, gives off two good- sized obtuse marginal, runs distally, has a posterolateral branch. Minor irregularities noted. No significant disease. FINAL IMPRESSION: This patient has a 50% to 55% mid LAD lesion. A right-dominant system, antral basal hypokinesia with ejection fraction of 45% to 50% with moderate mitral regurgitation. No significant disease in the RCA which is dominant or circumflex. No gradient across aortic valve. Normal filling pressures. RECOMMENDATIONS: I recommended FFR/IFR of mid LAD and proceeded to perform this in the same setting. FFR PROCEDURE DETAILS: I used a 3.5 left Stephany guide catheter to cannulate the left coronary artery. A Verrata wire was advanced and kept in the LAD well beyond the lesion. After normalization and appropriate balancing, nitroglycerin was given. The catheter was withdrawn from the ostium and IFR was measured. Two values were taken 0.97 and 0.98. This was considered normal and unremarkable. Results discussed with the patient. She received 2500 units of heparin and ACT was 244. The catheter and wire were withdrawn and the sheath was taken out. Patient tolerated procedure well without complication. MMODL / IJN: [id number] /
[2020-04-21] MEDS: diazePAM 5 MG TAB PO PRN ×2 (12:14→18:04)
[2020-04-21 12:18] LABS: Cholesterol 208 mg/dL (<200); HDL Cholesterol 64 mg/dL (40-60); LDL Cholesterol,Calculated 130 mg/dL (0-99); Triglycerides 72 mg/dL (<150)
--- NOTE | 2020-04-21 14:16 | P.PN ---
Progress Note - Text Progress Note Date: 04/21/20 Interval History: Patient was seen today for psychiatric follow-up regarding patient's depression. Patient was sitting at the bedside with no sitter today. She claims that she is feeling much better today with regards her anxiety and depression. She claims that she has been taking the medications which she feels is helping. She claims that she'll be willing to follow-up with a psychiatrist when she leaves the hospital. She appeared improving her insight and judgment today. She had a brighter affect. She claims that she is able to sleep throughout the night and prefers to be on the melatonin. She content fair appetite. At this time patient denies any suicidal or homical ideations, intent or plan. Patient denies any auditory, visual hallucinations and denies any paranoia or delusions. Patient denies any side effects from the medications and has been compliant with meds. Mental Status Exam: General Appearance: Patient appears to be thin, stated age is alert, directable, and cooperative. Patient appears to have fair hygiene and grooming wearing hospital gown with fair eye contact. Behavior: Patient is calmly lying in bed without any agitated behavior. More cooperative today. Speech: Patient's speech is fluent and nonpressured. Mood/Affect: Patient reports their mood is "good", affect is congruent Suicidality/Homicidality: Patient denies having any suicidal or homicidal ideation intent or plan. Perceptions: Patient denies any visual hallucinations and denies any auditory hallucinations Though content/process: There is no evidence of any delusional thought content and thought process is linear and goal-directed. [place]. Memory and concentration: AOX3, grossly intact for the purposes of this session Judgment and insight: improving Assessment Depressive disorder unspecified Anxiety disorder unspecified Cannabis use disorder, mild Plan: -At this time patient DOES NOT meet criteria for inpatient psychiatric admission. -Would recommend the following medication changes/additions: Can continue with Valium 10 mg twice a day when necessary for anxiety. Continue with Prozac 20 mg daily for mood/anxiety. Continue with melatonin daily at bedtime for insomnia. -track service worker to provide patient with outpatient mental health/psychiatry resources for appropriate follow up upon discharge -Home Help Aide spoke with patient about substance abuse and the harmful effects on medical and mental health, patient verbally understood and agreed. -At this time psychiatry was signed off. Patient will be discharged back home when medically appropriate. -Please contact with any questions.
--- NOTE | 2020-04-21 15:16 | P.PN ---
Subjective Progress Note Date: 04/21/20 Patient was seen for a follow-up. Patient is feeling much better. Patient believes that she has a side effect from Robaxin. Patient states that after taking Robaxin she felt her legs became rubber like. Patient states that she has previously tried Robaxin and had some adverse effect but was not as severe. Patient feels much better. Objective - Vital Signs Vital signs: Vital Signs Temp 97.7 F 04/21/20 09:30 Pulse 54 L 04/21/20 12:00 Resp 18 04/21/20 12:00 BP 138/66 04/21/20 12:50 Pulse Ox 97 04/21/20 10:50 Intake & Output 04/20/20 04/21/20 04/21/20 18:59 06:59 18:59 Intake Total 765 172.127 225 Output Total 100 500 Balance 665 172.127 -275 Weight 58.967 kg 57.6 kg Intake: IV 75 Intake, IV Titration 52.127 150 Amount Heparin Sod,Pork in 0.45% 52.127 NaCl 25,000 unit In 0.45 % NaCl 1 250ml.bag @ 12 UNITS/KG/HR 7.076 mls/hr IV .Q24H OPHEL[facility] Rx#: [id number] Sodium Chloride 0.9% 1, 150 000 ml @ 75 mls/hr IV . [id number] OPHELIA Rx#:[id number] Oral 765 120 Output: Urine 100 500 Other: # Voids 2 2 - Exam On examination her mental status, speech and language functions are normal. Cranial nerves are normal. Muscle strength normal. No ataxia. - Labs CBC & Chem 7: 04/21/20 10:24 04/20/20 04:19 Labs: Abnormal Lab Results - Last 24 Hours (Table) 04/20/20 04/20/20 04/21/20 Range/Units 15:00 20:44 10:24 APTT >200.0 H* 73.3 H (22.0-30.0) sec D-Dimer 1.45 H (<0.60) mg/L FEU Cholesterol 208 H (<200) mg/dL LDL Cholesterol, Calc 130 H (0-99) mg/dL HDL Cholesterol 64 H (40-60) mg/dL Assessment and Plan Assessment: * Episode of an altered mental status with, slurring, hallucinations, and some shaking spells. Possible delirium versus TIA. Rule out hypertensive encephalopathy, as her blood pressure was very high at the scene and when she arrived to the hospital. Patient has been on Valium 10 mg twice a day for number of years, as she ran out of it a couple days ago. Benzodiazepine withdrawal could be contributing to this withdrawal type symptoms/spell. . * Tobacco use * Hypertension * Elevated troponin. Plan: * Patient strongly recommended to avoid abrupt withdrawal of Valium, as it can lead to withdrawal seizure or other withdrawal symptoms. Stop Robaxin, as patient believes that symptoms started after taking Robaxin. * Control of hypertension as per IM. Cardiology also on board for elevated cardiac enzymes. Current BP 138/66 * Continue aspirin 81 mg and Lipitor 40 mg. * 2-D echo revealed overall left ventricle systolic function is mild to mo derately impaired with EF 40-45%. Basal inferior septal, basal anterior septal left-ventricular wall motion is hypokinetic. Basal inferior lateral hypokinesis. Left atrium is moderately dilated. Moderate to severe MR predominantly central. Would recommend GEOVANI to further assess etiology and degree of regurgitation if clinically indicated. Moderate to severe tricuspid regurgitation. Mild pulmonary hypertension. Cardiology on board. * Carotid Doppler showed no significant stenosis. Antegrade flow in both vertebral arteries. * Fasting a.m. lipid panel showed cholesterol 208, LDL 130, HDL 64 and triglycerides 72. Continue Lipitor. * Hemoglobin A1c 5.4. B12 923, folate 14.4 normal. TSH is normal. * Neurologically clear. No further workup indicated.
--- NOTE | 2020-04-21 15:51 | PN ---
PROGRESS NOTE DATE OF SERVICE: 04/21/2020 This is a 59-year-old woman who was admitted with elevated troponin and chest pain is being closely monitored at this time. The troponin elevated to 0.39 and acute non-ST- segment-elevation myocardial infarction. The patient also had hyperlipidemia. Cardiology performed a cardiac catheterization which showed 50%-55% mid LAD lesion and right-dominant system 45% to 50% disease elsewhere. The chest CTA was also done which showed no acute process. PAST MEDICAL HISTORY: Reviewed. REVIEW OF SYSTEMS: CARDIOVASCULAR SYSTEM: As mentioned earlier. GI: As mentioned earlier. : As mentioned earlier. NERVOUS SYSTEM: As mentioned earlier. CURRENT MEDICATIONS: Reviewed include aspirin, Lipitor, Valium, Pepcid, Prozac, Cozaar, melatonin, Lopressor. Doses are reviewed. PHYSICAL EXAMINATION: Pulse 54, blood pressure 140/70, respiration 18, temperature normal, pulse ox 97% on room air. HEENT: Conjunctivae normal. NECK: No jugular venous distension. CARDIOVASCULAR SYSTEM: S1, S2, muffled. RESPIRATION: Breath sounds diminished at the bases, no rhonchi, no crackles. ABDOMEN: Soft, nontender. LEGS: No edema. No swelling. NERVOUS SYSTEM: No focal deficits. CBC within normal limits. Cholesterol noted. ASSESSMENT: 1. Acute jcf-IC-rwggehu-elevation myocardial infarction status post cardiac catheterization and moderate coronary artery disease. 2. Hyperlipidemia. 3. Elevated D-dimer with no evidence of pulmonary embolism. 4. Positive benzodiazepines and THC in the urine. 5. History of hypertension. 6. Hyperlipidemia. 7. History of pneumonia. 8. History of bilateral lumpectomy. 9. Anxiety, depression, PTSD. 10.Transient speech difficulty, possible acute transient ischemic attack. RECOMMENDATION: In this 59-year-old woman with multiple complex medical issues, will monitor the patient closely, continue with the current management and symptomatic medical treatment. Antiplatelet agents. Closely follow with Cardiology. Otherwise, continue rest of medications. Prognosis guarded. Resume the home medications. Further recommendations to follow. MMODL / IJN: [id number] /
[2020-04-21] MEDS: buPROPion SR 150 MG TABLET.ER PO SCH ×2 (17:59→20:11)
[2020-04-21] MEDS: traMADol 50 MG TAB PO PRN (19:46)
[2020-04-21] MEDS ORDERED: LOSARTAN 25 MG TAB PO SCH (21:00)
[2020-04-21] MEDS: FAMOTIDINE 20 MG TAB PO SCH (21:42)
[2020-04-21] MEDS: MELATONIN 5 MG TABLET PO SCH (21:43)
[2020-04-22] MEDS: SODIUM CHLORIDE 0.9% 1,000 ML IV SCH (01:03)
[2020-04-22] MEDS ORDERED: SODIUM CHLORIDE 0.9% 500 ML 500 ML IV SCH (03:00)
[2020-04-22 08:22] LABS: Basophils # (A) 0.1 k/uL (0-0.2); Basophils % (A) 1 %; Eosinophils # (A) 0.1 k/uL (0-0.7); Eosinophils % (A) 1 %; HCT 46.2 % (34.0-46.0); HGB 14.5 gm/dL (11.4-16.0); Lymphocytes # (A) 2.7 k/uL (1.0-4.8); Lymphocytes % (A) 35 %; MCH 30.8 pg (25.0-35.0); MCHC 31.5 g/dL (31.0-37.0); Monocytes # (A) 0.4 k/uL (0-1.0); Monocytes % (A) 6 %; Neutrophils # (A) 4.4 k/uL (1.3-7.7); Neutrophils % (A) 57 %; Platelet Count 220 k/uL (150-450); RBC 4.71 m/uL (3.80-5.40); WBC 7.8 k/uL (3.8-10.6)
[2020-04-22] MEDS: traMADol 50 MG TAB PO PRN (08:33)
[2020-04-22] MEDS: FAMOTIDINE 20 MG TAB PO SCH (08:33)
[2020-04-22] MEDS: GABAPENTIN 400 MG CAP PO SCH (08:33)
[2020-04-22] MEDS: buPROPion SR 150 MG TABLET.ER PO SCH (08:33)
[2020-04-22] MEDS: FLUoxetine HCL 20 MG CAP PO SCH (08:34)
[2020-04-22] MEDS: NICOTINE 14MG/24HR PATCH TRANSDERM SCH (08:34)
[2020-04-22] MEDS: diazePAM 5 MG TAB PO PRN (08:34)
[2020-04-22] MEDS: ATORVASTATIN 40 MG TAB PO SCH (08:34)
[2020-04-22] MEDS: METOPROLOL TARTRATE 25 MG TAB PO SCH (08:34)
[2020-04-22 08:42] VITALS: RESP 16; TEMP 98.7
[2020-04-22 08:46] LABS: African American GFR (CKD) >90 (>60 ml/min/1.73 sqM); Anion Gap 2 mmol/L; Blood Urea Nitrogen 13 mg/dL (7-17); Carbon Dioxide 33 mmol/L (22-30); Chloride 106 mmol/L (98-107); Glucose 104 mg/dL (74-99); Non-African American GFR(CKD) 81 (>60 ml/min/1.73 sqM); Potassium 4.5 mmol/L (3.5-5.1); Sodium 141 mmol/L (137-145)
[2020-04-22 11:45] VITALS: BP 124/78; PULSE 56
--- NOTE | 2020-04-22 15:24 | PN ---
PROGRESS NOTE Mrs Mojica is in sinus rhythm. Right radial cath site is clean and dry. Vital signs stable. No JVD. S1-S2 heart normally. Short systolic murmur noted at the apex. Lungs are clear. Abdomen and lower extremity exams unchanged. This lady has moderate mitral regurgitation, calcified mitral valve leaflets. Also she has an atypical takotsubo with an anterobasal and inferobasal hypokinesia. No significant obstructive CAD, moderate disease in LAD, negative FFR. She can be discharged with the understanding I will see her in the office next week. Advised to continue to refrain from smoking and continue her current medications include beta blockers and Cozaar. Prognosis remains guarded. Advised to refrain from smoking. She can be discharged today. MMODL / IJN: [id number] /
--- NOTE | 2020-04-22 17:57 | DS ---
DISCHARGE SUMMARY FINAL DIAGNOSES: 1. Acute tnr-XE-gpwkhyf-elevation myocardial infarction status post cardiac catheterization and moderate coronary artery disease on medical treatment. 2. Hyperlipidemia. 3. Elevated D-dimer with no evidence of pulmonary embolism. 4. Positive benzodiazepines and THC in the urine. 5. History of hypertension. 6. History of hyperlipidemia. 7. History of pneumonia. 8. History of bilateral lumpectomy. 9. Anxiety depression PTSD. 10.Transient speech difficulty, possible TIA acute. DISCHARGE CONDITION: The patient will be discharged in stable condition with guarded prognosis. Cardiology cleared for discharge. HISTORY OF PRESENT ILLNESS: This 59-year-old woman with a past medical history of multiple medical problems was admitted with admitted with chest pain and features of acute vkg-DF-mawcvja-elevation myocardial infarction. Cardiology performed cardiac catheterization which showed moderate coronary artery disease. Medical treatment advised. Patient improved significantly. On exam, vitals are stable. Cardiovascular S1 and S2. Abdomen soft. Nervous system no focal deficits. Please refer to Cardiology note for further information. The patient will be discharged in stable condition with guarded prognosis. Diet is cardiac diet. Follow up with primary physician 1 week. Follow up with Dr. Chaudhari as recommended. MEDICATIONS: 1. Gabapentin 600 mg p.o. t.i.d. 2. Habitrol 14 daily. 3. Ultram 50 mg q.6 p.r.n. 4. Valium 10 mg p.o. b.i.d. p.r.n. 5. Budesonide 150 mg p.o. b.i.d. 6. Aspirin 81 mg p.o. 7. Cozaar 12.5 mg at bedtime. 8. Lipitor 40 mg p.o. daily. 9. Lopressor 25 mg p.o. b.i.d. 10.Nitrostat 0.4 sublingual p.r.n. 11.Prozac 20 mg p.o. daily. Once again, the patient will be discharged in stable condition with guarded prognosis. MMODL / IJN: [id number] /
[2020-04-23] MEDS ORDERED: METOPROLOL TARTRATE 25 MG TAB PO SCH (09:00)
== END 2020-04-22 14:35 | disposition home or self-care (01) | DRG 280 ==
LOC: EC 02:47 → 3SCARD 05:52 → OBSVTOIN 13:40
PROVIDERS: ADMIT Hospitalist; ATTEND Hospitalist
PROC: 4A023N7 Measurement of Cardiac Sampling and Pressure, Left Heart, Percutaneous Approach (ICD-10-PCS; principal; 2020-04-21 07:30)
PROC: 4A033BC Measurement of Arterial Pressure, Coronary, Percutaneous Approach (ICD-10-PCS; principal; 2020-04-21 07:30)
PROC: B2111ZZ Fluoroscopy of Multiple Coronary Arteries using Low Osmolar Contrast (ICD-10-PCS; principal; 2020-04-21 07:30)
PROC: B2151ZZ Fluoroscopy of Left Heart using Low Osmolar Contrast (ICD-10-PCS; principal; 2020-04-21 07:30)
DX: I21.4 Non-ST elevation (NSTEMI) myocardial infarction (principal); I50.21 Acute systolic (congestive) heart failure; I51.81 Takotsubo syndrome; G45.9 Transient cerebral ischemic attack, unspecified; I27.20 Pulmonary hypertension, unspecified; I11.0 Hypertensive heart disease with heart failure; I25.5 Ischemic cardiomyopathy; I25.10 Atherosclerotic heart disease of native coronary artery without angina pectoris; I08.1 Rheumatic disorders of both mitral and tricuspid valves; D72.829 Elevated white blood cell count, unspecified; E78.5 Hyperlipidemia, unspecified; F41.9 Anxiety disorder, unspecified; F32.9 Major depressive disorder, single episode, unspecified; F43.10 Post-traumatic stress disorder, unspecified; G25.81 Restless legs syndrome; R26.0 Ataxic gait; F12.10 Cannabis abuse, uncomplicated; F17.210 Nicotine dependence, cigarettes, uncomplicated; Z71.6 Tobacco abuse counseling; Z79.899 Other long term (current) drug therapy; W19.XXXA Unspecified fall, initial encounter; Z78.1 Physical restraint status; Z87.01 Personal history of pneumonia (recurrent)
CPT/HCPCS: 36415; 70450; 71046; 71275; 80048; 80053; 80061; 80306; 81001; 82607; 82746; 83036; 84443; 84484; 85025; 85347; 85379; 85610; 85730; 93005; 93306; 93458; 93571; 93880; 94760; 96374; 99285